=== PATIENT | female | born 1980 | race Caucasian/White ===

== ENCOUNTER 2016-10-29 11:01 | Inpatient (IN) | payer BC ==
[~2016-10-29] VITALS: Ht 160 cm; Wt 78.6 kg
[~2016-10-29 11:01] MED LIST: NASAL SPRAY; NO HOME MEDICATIONS; PERCOCET 325 MG1 TA2 PO; PRENATAL1 TA1 PO; ROLAIDS220 M1 PO; SUDAFED 12 HOU120 MG PO; TRANDATE 100MG100 MG PO; TYLENOL EXTRA500 M1 PO
[2016-12-08] VITALS (42 sets, daily range): BP systolic 111–148; BP diastolic 57–90; PULSE 65–133; TEMP 97.3–97.7
[2016-12-08] MEDS ORDERED: ZANTAC 150MG T150 MG PO (07:31)
[2016-12-08] MEDS ORDERED: COLACE 100100 MG/CAP PO (07:31)
[2016-12-08] MEDS ORDERED: TUMS500 MG (07:31)
[2016-12-08] MEDS ORDERED: NATURAL IRON65 MG PO (07:31)
[2016-12-08] MEDS ORDERED: PRENATAL1 TA7 PO (07:32)
[2016-12-08 10:08] LABS: BASO % 0.4 % (0.0-2.0); EOS # 0.1 (0.0-0.7); EOS % 1.9 % (0-4.0); GRAN # 4.3 (1.4-6.5); GRAN % 61.4 % (42.2-75.2); HEMOGLOBIN 12.5 g/dl (12.5-16.0); LYMPH # 1.7 (1.2-3.4); LYMPH % 23.9 % (20.0-51.0); MEAN CELL VOLUME 90 fl (80.0-100.0); MEAN CORPUSCULAR HEMOGLOBIN 31 pg (27.0-31.0); MEAN CORPUSCULAR HGB CONC 34 g/dl (33.0-37.0); MONO # 0.8 (0.1-0.6); MONO % 11.5 % (1.7-9.3); PLATELET COUNT 248 K/mm3 (130-400); RED BLOOD COUNT 4.08 M/mm3 (4.10-5.30); REDCELL DISTRIBUTION WIDTH-CV 13.8 % (11.5-14.5)
[2016-12-08 10:11] LABS: HEMATOCRIT 36.8 % (37.0-47.0)
[2016-12-09 00:30] VITALS: BP 105/59; PULSE 90
[2016-12-09 04:15] VITALS: BP 105/56; PULSE 75; TEMP 97.4
[2016-12-09 07:30] VITALS: BP 116/65; PULSE 80; TEMP 97.9
[2016-12-09] MEDS ORDERED: PERCOCET 325 MG1 TA2 PO (08:26)
[2016-12-09] MEDS ORDERED: IBU600 MG PO (08:26)
[2016-12-09 17:30] VITALS: BP 112/67; PULSE 87; TEMP 97.9
== END 2016-12-09 19:10 | disposition home or self-care (01) | DRG 775 ==
LOC: LDR 12-08 06:43 → OB 12-08 19:15 → EDSTATUS 12-11 06:42 → LDRO 12-11 11:00
PROVIDERS: Obstetrics & Gynecology
PROC: 10E0XZZ Delivery of Products of Conception, External Approach (ICD-10-PCS; principal; 2016-12-08)
PROC: 3E033VJ Introduction of Other Hormone into Peripheral Vein, Percutaneous Approach (ICD-10-PCS; 2016-12-08)
PROC: 0HQ9XZZ Repair Perineum Skin, External Approach (ICD-10-PCS; 2016-12-08)
DX: O24.410 Gestational diabetes mellitus in pregnancy, diet controlled (principal); O09.523 Supervision of elderly multigravida, third trimester; O70.0 First degree perineal laceration during delivery; Z3A.39 39 weeks gestation of pregnancy; Z37.0 Single live birth
CPT/HCPCS: J2590; J7120